=== PATIENT | male | born 1965 | race African-American/Black ===

== ENCOUNTER 2017-10-25 12:06 | Emergency (ER) | payer MEDICAID ==
[~2017-10-25] VITALS: Ht 175.3 cm; Wt 77.0 kg
[2017-10-25] MEDS ORDERED: METF500T4 PO (12:19)
[2017-10-25 12:46] LABS: BASOPHILS % 0.5 % (0.0-2.0); EOSINOPHILS % 0.7 % (0.0-5.0); HEMATOCRIT. 41.2 % (42.0-52.0); HEMOGLOBIN. 13.6 g/dL (14.0-18.0); LYMPHOCYTES % 12.5 % (20.0-50.0); MEAN CORPUSCULAR HEMOGLOBIN 32.1 pg (28.0-32.0); MEAN CORPUSCULAR VOLUME 97.1 fL (80.0-94.0); MEAN PLATELET VOLUME 9.6 fl (7.4-10.4); MONOCYTES % 4.6 % (2.0-8.0); NEUTROPHILS % 81.7 % (40.0-76.0); PLATELET 301 x1000/uL (130-400); RED BLOOD CELL COUNT 4.24 mill/uL (4.7-6.1); RED CELL DISTRIBUTION WIDTH 15.1 % (11.6-14.6)
[2017-10-25 13:03] LABS: ETHANOL BLOOD < 10 mg/dL; TROPONIN I 0.02 ng/mL (0.00-0.04)
[2017-10-25 13:36] LABS: CHLORIDE 112 mEq/L (98-107); INR 0.9; PROTHROMBIN TIME 9.8 sec (9.4-11.6)
[2017-10-25] MEDS ORDERED: IOHEXOL-350 100 ML BOTTLE ONE (14:39)
[2017-10-25 15:17] VITALS: BP 152/81
== END 2017-10-25 15:14 | disposition short-term general hospital (02) ==
LOC: ER 12:12 → CANBEDREQ 20:32
DX: I63.512 Cerebral infarction due to unspecified occlusion or stenosis of left middle cerebral artery (principal); I10 Essential (primary) hypertension; E11.9 Type 2 diabetes mellitus without complications; G82.20 Paraplegia, unspecified
CPT/HCPCS: 36415; 70450; 70496; 71045; 80053; 82962; 84484; 85025; 85610; 93005; 99291; G0482; Q9967; Z7610; 81003; A4315

== ENCOUNTER 2018-06-01 18:12 | Inpatient (IN) | payer MEDICAID ==
[~2018-06-01] VITALS: Ht 167.6 cm; Wt 72.6 kg
[~2018-06-01 18:12] MED LIST: AMLO2.5T45 MT; ASPI-1159 PO; COR6 PO; EPOE40007 SUBCUT; GLIM1TAB2 MT; LACT1CAP56 MT; LANTUSUD SUBCUT; LINA5TAB MT; OMEP20CA10 MT
[2018-06-01] MEDS ORDERED: SODIUM CHLORIDE 0.9% 1,000 ML IV ONE (21:28)
[2018-06-01] MEDS ORDERED: ONDANSETRON HCL 4MG/2ML INJ IV STA (21:28)
[2018-06-01] MEDS ORDERED: MORPHINE SULFATE 4 MG/ML CPJ (NOT FOR IM USE) IV STA (21:28)
[2018-06-01 22:03] LABS: BASOPHILS % 0.4 % (0.0-2.0); EOSINOPHILS % 0.5 % (0.0-5.0); INR 1.1; LYMPHOCYTES % 15.6 % (20.0-50.0); MEAN CORPUSCULAR HEMOGLOBIN 29.6 pg (28.0-32.0); MEAN CORPUSCULAR VOLUME 93.6 fL (80.0-94.0); MEAN PLATELET VOLUME 7.8 fl (7.4-10.4); MONOCYTES % 3.4 % (2.0-8.0); NEUTROPHILS % 80.1 % (40.0-76.0); PLATELET 718 x1000/uL (130-400); PROTHROMBIN TIME 10.9 sec (9.1-11.1); RED BLOOD CELL COUNT 2.03 mill/uL (4.7-6.1); RED CELL DISTRIBUTION WIDTH 16.4 % (11.6-14.6)
[2018-06-01 22:08] LABS: CHLORIDE 106 mEq/L (98-107)
[2018-06-01] MEDS ORDERED: MAGNESIUM SULFATE 2 GM in DEXTROSE 5% WATER 50 ML IV NR (23:45)
[2018-06-02 00:11] LABS: CLARITY URINE CLOUDY (CLEAR); COLOR URINE YELLOW (YELLOW); KETONES URINE TRACE (NEGATIVE); LEUKOCYTE ESTERASE URINE NEGATIVE (NEGATIVE); NITRITE URINE NEGATIVE (NEGATIVE); OCCULT BLOOD URINE 1+ (NEGATIVE); PH URINE 5.5 (4.5-8.0); PROTEIN URINE 4+ (NEGATIVE); SPECIFIC GRAVITY URINE 1.024 (1.005-1.030)
[2018-06-02] MEDS ORDERED: DIPHENHYDRAMINE 50MG/ML VIAL IV PRN (00:15)
[2018-06-02] MEDS ORDERED: HYDROCODONE/ACETAMINOPHEN 5/325MG TABLET PO PRN (00:15)
[2018-06-02] MEDS ORDERED: ONDANSETRON HCL 4MG/2ML INJ IV PRN (00:15)
[2018-06-02] MEDS ORDERED: CLONIDINE 0.1MG TABLET PO PRN (00:15)
[2018-06-02] MEDS ORDERED: NA PHOS,M-B/NA PHOS,DI-BA ENEMA 118ML PR PRN (00:15)
[2018-06-02] MEDS ORDERED: ACETAMINOPHEN 650MG/20.3ML UDC GT PRN (00:15)
[2018-06-02] MEDS ORDERED: ACETAMINOPHEN 325MG TABLET PO PRN (00:15)
[2018-06-02] MEDS ORDERED: MAGNESIUM/ALUMINUM HYDROXIDE/SIMETHICONE 30ML UDC PO PRN (00:15)
[2018-06-02] MEDS ORDERED: ACETAMINOPHEN 650MG SUPP PR PRN (00:15)
[2018-06-02 02:40] VITALS: BP 113/67
[2018-06-02] MEDS: HYDROCODONE/ACETAMINOPHEN 10/325MG TABLET PO PRN ×3 (03:54→21:12)
[2018-06-02 04:00] VITALS: BP 116/68
[2018-06-02] MEDS ORDERED: LISI-186 PO (04:06)
[2018-06-02] MEDS ORDERED: FURO40TA5 PO (04:06)
[2018-06-02] MEDS ORDERED: METF850T2 PO (04:06)
[2018-06-02 08:00] VITALS: BP 100/51
[2018-06-02] MEDS ORDERED: DEXTROSE 50% WATER 50ML SYRINGE IV PRN (11:15)
[2018-06-02] MEDS: LACTOBACILLUS GG CAPSULE PO SCH (11:15)
[2018-06-02] MEDS: FUROSEMIDE 40MG TABLET PO SCH ×2 (11:15→17:00)
[2018-06-02] MEDS: CARVEDILOL 6.25 MG TABLET PO SCH ×3 (11:30→21:12)
[2018-06-02 12:00] VITALS: BP 123/71
[2018-06-02 12:50] LABS: BASOPHILS % 0.4 % (0.0-2.0); EOSINOPHILS % 0.6 % (0.0-5.0); LYMPHOCYTES % 13.3 % (20.0-50.0); MEAN CORPUSCULAR HEMOGLOBIN 30.5 pg (28.0-32.0); MEAN CORPUSCULAR VOLUME 94.1 fL (80.0-94.0); MEAN PLATELET VOLUME 7.8 fl (7.4-10.4); MONOCYTES % 4.4 % (2.0-8.0); NEUTROPHILS % 81.3 % (40.0-76.0); PLATELET 565 x1000/uL (130-400); RED BLOOD CELL COUNT 1.73 mill/uL (4.7-6.1); RED CELL DISTRIBUTION WIDTH 16.7 % (11.6-14.6)
[2018-06-02 12:54] LABS: HEMATOCRIT. 16.3 % (42.0-52.0); HEMOGLOBIN. 5.3 g/dL (14.0-18.0)
[2018-06-02 13:25] LABS: CHLORIDE 107 mEq/L (98-107)
[2018-06-02 13:32] LABS: LDL CHOLESTEROL 80 mg/dL (5-100)
[2018-06-02 13:34] LABS: HDL CHOLESTEROL 32 mg/dL (40-59)
[2018-06-02] MEDS: BLOOD SUGAR DIAGNOSTIC STRIP TEST SCH ×3 (13:35→21:19)
[2018-06-02] MEDS: INSULIN LISPRO 100 UNITS/ML SUBCUT SCH ×3 (14:16→21:18)
[2018-06-02] MEDS: LINAGLIPTIN 5MG TABLET PO SCH (14:18)
[2018-06-02] MEDS: LISINOPRIL 5MG TABLET PO SCH (14:18)
[2018-06-02] MEDS: AMLODIPINE 10MG TABLET PO SCH (14:19)
[2018-06-02] MEDS: ASPIRIN 81MG TABLET PO SCH (14:19)
[2018-06-02] MEDS: LACTATED RINGERS 1,000 ML IV SCH (15:49)
[2018-06-02 16:00] VITALS: BP 99/63
[2018-06-02 20:00] VITALS: BP 101/56
[2018-06-02 20:26] LABS: CLARITY URINE CLOUDY (CLEAR); COLOR URINE YELLOW (YELLOW); KETONES URINE TRACE (NEGATIVE); LEUKOCYTE ESTERASE URINE NEGATIVE (NEGATIVE); NITRITE URINE NEGATIVE (NEGATIVE); OCCULT BLOOD URINE 1+ (NEGATIVE); PROTEIN URINE 3+ (NEGATIVE); SPECIFIC GRAVITY URINE 1.021 (1.005-1.030)
[2018-06-03] VITALS: BP 108/55
[2018-06-03 04:00] VITALS: BP 119/60
[2018-06-03] MEDS: BLOOD SUGAR DIAGNOSTIC STRIP TEST SCH ×4 (07:40→21:09)
[2018-06-03] MEDS: PANTOPRAZOLE 40MG DR TABLET PO SCH (07:40)
[2018-06-03 08:00] VITALS: BP 126/69
[2018-06-03] MEDS: INSULIN LISPRO 100 UNITS/ML SUBCUT SCH ×4 (08:10→21:00)
[2018-06-03] MEDS: CARVEDILOL 6.25 MG TABLET PO SCH ×2 (09:00→21:05)
[2018-06-03] MEDS ORDERED: IOHEXOL-350 100 ML BOTTLE ONE (09:26)
[2018-06-03] MEDS: FUROSEMIDE 40MG TABLET PO SCH (10:34)
[2018-06-03] MEDS: LISINOPRIL 5MG TABLET PO SCH (10:34)
[2018-06-03] MEDS: LINAGLIPTIN 5MG TABLET PO SCH (10:34)
[2018-06-03] MEDS: AMLODIPINE 10MG TABLET PO SCH (10:37)
[2018-06-03] MEDS: LACTOBACILLUS GG CAPSULE PO SCH (10:37)
[2018-06-03] MEDS: ASPIRIN 81MG TABLET PO SCH (10:39)
[2018-06-03 10:52] LABS: MEAN CORPUSCULAR HEMOGLOBIN 29.6 pg (28.0-32.0); MEAN CORPUSCULAR VOLUME 94.3 fL (80.0-94.0); MEAN PLATELET VOLUME 7.7 fl (7.4-10.4); PLATELET 611 x1000/uL (130-400)
[2018-06-03 10:56] LABS: HEMOGLOBIN. 5.3 g/dL (14.0-18.0)
[2018-06-03 11:18] LABS: CHLORIDE 105 mEq/L (98-107)
[2018-06-03 11:32] LABS: LDL CHOLESTEROL 81 mg/dL (5-100)
[2018-06-03 11:34] LABS: HDL CHOLESTEROL 33 mg/dL (40-59)
[2018-06-03 11:45] LABS: PLATELET ESTIMATE INCREASED
[2018-06-03 12:00] VITALS: BP 127/56
[2018-06-03] MEDS: HYDROCODONE/ACETAMINOPHEN 10/325MG TABLET PO PRN (12:00)
[2018-06-03] MEDS: LACTATED RINGERS 1,000 ML IV SCH (14:19)
[2018-06-03] MEDS: CEFTRIAXONE 1 G PREMIX 50 ML IV SCH (14:26)
[2018-06-03 16:00] VITALS: BP 109/72
[2018-06-03 20:00] VITALS: BP 135/72
[2018-06-04] VITALS (8 sets, daily range): BP systolic 120–148; BP diastolic 63–87
[2018-06-04] MEDS: BLOOD SUGAR DIAGNOSTIC STRIP TEST SCH ×4 (07:40→21:40)
[2018-06-04] MEDS: PANTOPRAZOLE 40MG DR TABLET PO SCH (07:40)
[2018-06-04] MEDS: INSULIN LISPRO 100 UNITS/ML SUBCUT SCH ×4 (08:10→21:00)
[2018-06-04] MEDS: CARVEDILOL 6.25 MG TABLET PO SCH ×2 (09:00→21:00)
[2018-06-04] MEDS: LINAGLIPTIN 5MG TABLET PO SCH (09:00)
[2018-06-04] MEDS: LACTOBACILLUS GG CAPSULE PO SCH (09:00)
[2018-06-04] MEDS: AMLODIPINE 10MG TABLET PO SCH (09:00)
[2018-06-04] MEDS ORDERED: FLUCONAZOLE 100MG TABLET PO ONE (12:00)
[2018-06-04] MEDS: CEFTRIAXONE 1 G PREMIX 50 ML IV SCH (13:13)
[2018-06-04] MEDS: FLUCONAZOLE 100MG TABLET PO SCH (13:20)
[2018-06-04 15:28] LABS: BASOPHILS % 0.5 % (0.0-2.0); EOSINOPHILS % 0.5 % (0.0-5.0); LYMPHOCYTES % 7.4 % (20.0-50.0); MEAN CORPUSCULAR HEMOGLOBIN 30.3 pg (28.0-32.0); MEAN CORPUSCULAR VOLUME 93.3 fL (80.0-94.0); MEAN PLATELET VOLUME 7.7 fl (7.4-10.4); MONOCYTES % 2.6 % (2.0-8.0); PLATELET 575 x1000/uL (130-400); RED CELL DISTRIBUTION WIDTH 16.9 % (11.6-14.6)
[2018-06-04 15:41] LABS: CHLORIDE 105 mEq/L (98-107)
[2018-06-04] MEDS: LACTATED RINGERS 1,000 ML IV SCH (15:45)
[2018-06-04 15:50] LABS: HEMATOCRIT. 16.8 % (42.0-52.0); HEMOGLOBIN. 5.5 g/dL (14.0-18.0)
[2018-06-04] MEDS: HYDROCODONE/ACETAMINOPHEN 10/325MG TABLET PO PRN (19:04)
[2018-06-04] MEDS ORDERED: FUROSEMIDE 40MG/4ML VIAL IVP NR (19:30)
[2018-06-04] MEDS: EPOETIN ALFA 4000UNITS/ML VIAL SUBCUT SCH (21:34)
[2018-06-05] VITALS (20 sets, daily range): BP systolic 104–169; BP diastolic 65–91
[2018-06-05] MEDS: ALBUTEROL (0.083%) 2.5MG/3ML NEB HHN SCH ×4 (02:05→21:25)
[2018-06-05 03:09] LABS: BASOPHILS % 0.3 % (0.0-2.0); EOSINOPHILS % 0.7 % (0.0-5.0); MEAN PLATELET VOLUME 7.5 fl (7.4-10.4); MONOCYTES % 3.9 % (2.0-8.0); NEUTROPHILS % 87.1 % (40.0-76.0); PLATELET 532 x1000/uL (130-400); RED BLOOD CELL COUNT 2.24 mill/uL (4.7-6.1); RED CELL DISTRIBUTION WIDTH 16.9 % (11.6-14.6)
[2018-06-05 03:16] LABS: HEMATOCRIT. 20.6 % (42.0-52.0); HEMOGLOBIN. 6.7 g/dL (14.0-18.0)
[2018-06-05 03:18] LABS: INR 1.1; PROTHROMBIN TIME 11.4 sec (9.1-11.1)
[2018-06-05] MEDS: BLOOD SUGAR DIAGNOSTIC STRIP TEST SCH ×4 (05:41→21:00)
[2018-06-05] MEDS: PANTOPRAZOLE 40MG DR TABLET PO SCH (07:40)
[2018-06-05] MEDS: INSULIN LISPRO 100 UNITS/ML SUBCUT SCH ×4 (07:46→22:16)
[2018-06-05] MEDS: AMLODIPINE 10MG TABLET PO SCH (09:00)
[2018-06-05] MEDS: LINAGLIPTIN 5MG TABLET PO SCH (09:00)
[2018-06-05] MEDS: CARVEDILOL 6.25 MG TABLET PO SCH ×2 (09:00→20:47)
[2018-06-05] MEDS: FLUCONAZOLE 100MG TABLET PO SCH (09:00)
[2018-06-05] MEDS: LACTOBACILLUS GG CAPSULE PO SCH (09:00)
[2018-06-05 09:48] LABS: HEMATOCRIT. 22.5 % (42.0-52.0); HEMOGLOBIN. 7.2 g/dL (14.0-18.0); MEAN CORPUSCULAR HEMOGLOBIN 28.5 pg (28.0-32.0); MEAN CORPUSCULAR VOLUME 88.7 fL (80.0-94.0); MEAN PLATELET VOLUME 7.5 fl (7.4-10.4); PLATELET 530 x1000/uL (130-400); RED BLOOD CELL COUNT 2.54 mill/uL (4.7-6.1); RED CELL DISTRIBUTION WIDTH 19.6 % (11.6-14.6)
[2018-06-05 09:59] LABS: INR 1.1; PROTHROMBIN TIME 11.3 sec (9.1-11.1)
[2018-06-05] MEDS: FUROSEMIDE 40MG/4ML VIAL IVP SCH (10:13)
[2018-06-05] MEDS ORDERED: HEPARIN SODIUM 1,000 UNIT/1ML VIAL IV ONE (13:50)
[2018-06-05] MEDS: CEFTRIAXONE 1 G PREMIX 50 ML IV SCH (15:12)
[2018-06-05] MEDS ORDERED: IODIXANOL 320MG/ML 100 ML BOTTLE IV ONE (15:52)
[2018-06-05] MEDS ORDERED: LIDOCAINE HCL 1% 10 MG/ML 10ML VIAL ONE ×2 (15:52→16:33)
[2018-06-05 16:10] LABS: PLATELET ESTIMATE INCREASED
[2018-06-05] MEDS ORDERED: FENTANYL CITRATE/PF 50MCG/ML 2ML VIAL ONE ×2 (16:25→16:55)
[2018-06-05] MEDS ORDERED: MIDAZOLAM HCL 2 MG/2 ML VIAL ONE ×2 (16:25→16:55)
[2018-06-05] MEDS ORDERED: IOHEXOL-300 100 ML BOTTLE ONE (17:03)
[2018-06-05] MEDS: HYDROCODONE/ACETAMINOPHEN 10/325MG TABLET PO PRN (20:30)
[2018-06-05] MEDS ORDERED: AMLODIPINE 10MG TABLET PO SCH (20:45)
[2018-06-05] MEDS ORDERED: AMLODIPINE 10MG TABLET PO NR ×2 (20:45→21:00)
[2018-06-06] VITALS: BP 132/58
[2018-06-06] MEDS: ALBUTEROL (0.083%) 2.5MG/3ML NEB HHN SCH ×4 (01:39→20:24)
[2018-06-06] MEDS: ACETYLCYSTEINE 200MG/ML 20% VIAL 4ML PO SCH (02:03)
[2018-06-06] MEDS: HYDROCODONE/ACETAMINOPHEN 10/325MG TABLET PO PRN ×3 (02:55→21:15)
[2018-06-06 04:00] VITALS: BP 127/80
[2018-06-06] MEDS: BLOOD SUGAR DIAGNOSTIC STRIP TEST SCH ×4 (05:13→21:04)
[2018-06-06] MEDS: PANTOPRAZOLE 40MG DR TABLET PO SCH (07:40)
[2018-06-06] MEDS: INSULIN LISPRO 100 UNITS/ML SUBCUT SCH ×4 (07:53→21:00)
[2018-06-06 08:00] VITALS: BP 109/80
[2018-06-06] MEDS: CARVEDILOL 6.25 MG TABLET PO SCH ×3 (08:05→21:04)
[2018-06-06] MEDS: FLUCONAZOLE 100MG TABLET PO SCH (08:05)
[2018-06-06] MEDS: LACTOBACILLUS GG CAPSULE PO SCH (08:05)
[2018-06-06] MEDS: AMLODIPINE 10MG TABLET PO SCH (08:06)
[2018-06-06] MEDS: LINAGLIPTIN 5MG TABLET PO SCH (08:06)
[2018-06-06] MEDS: FUROSEMIDE 40MG/4ML VIAL IVP SCH (08:30)
[2018-06-06 12:00] VITALS: BP 150/86
[2018-06-06] MEDS ORDERED: SULF1TAB48 MT (12:30)
[2018-06-06] MEDS: ASCORBIC ACID 500 MG TABLET PO SCH (13:43)
[2018-06-06] MEDS: MULTIVITAMINS,THER W-MINERALS TABLET PO SCH (13:43)
[2018-06-06] MEDS: CEFTRIAXONE 1 G PREMIX 50 ML IV SCH (13:43)
[2018-06-06] MEDS: ZINC SULFATE 220 MG ( 50 ) CAPSULE PO SCH (13:43)
[2018-06-06 15:18] LABS: HEMATOCRIT. 26.3 % (42.0-52.0); HEMOGLOBIN. 8.4 g/dL (14.0-18.0); MEAN CORPUSCULAR HEMOGLOBIN 28.6 pg (28.0-32.0); MEAN PLATELET VOLUME 7.6 fl (7.4-10.4); PLATELET 484 x1000/uL (130-400); RED BLOOD CELL COUNT 2.95 mill/uL (4.7-6.1)
[2018-06-06 16:00] VITALS: BP 158/90
[2018-06-06 16:06] LABS: PLATELET ESTIMATE INCREASED
[2018-06-06 16:19] LABS: CHLORIDE 104 mEq/L (98-107)
[2018-06-06 20:00] VITALS: BP 143/88
[2018-06-06] MEDS: EPOETIN ALFA 4000UNITS/ML VIAL SUBCUT SCH (21:04)
[2018-06-06] MEDS: SODIUM CHLORIDE 0.9% 1,000 ML IV SCH (23:45)
[2018-06-07] VITALS: BP 138/84
[2018-06-07] MEDS: ALBUTEROL (0.083%) 2.5MG/3ML NEB HHN SCH ×4 (02:03→20:43)
[2018-06-07 05:52] VITALS: BP 126/70
[2018-06-07] MEDS: BLOOD SUGAR DIAGNOSTIC STRIP TEST SCH ×4 (06:46→20:18)
[2018-06-07 08:00] VITALS: BP 146/86
[2018-06-07] MEDS: INSULIN LISPRO 100 UNITS/ML SUBCUT SCH ×4 (08:10→20:18)
[2018-06-07] MEDS: CARVEDILOL 6.25 MG TABLET PO SCH ×3 (09:00→20:01)
[2018-06-07] MEDS: ACETYLCYSTEINE 200MG/ML 20% VIAL 4ML PO SCH ×2 (09:00→14:48)
[2018-06-07] MEDS: LACTOBACILLUS GG CAPSULE PO SCH ×2 (09:00→11:05)
[2018-06-07] MEDS: ASCORBIC ACID 500 MG TABLET PO SCH (11:05)
[2018-06-07] MEDS: MULTIVITAMINS,THER W-MINERALS TABLET PO SCH (11:05)
[2018-06-07] MEDS: LINAGLIPTIN 5MG TABLET PO SCH (11:06)
[2018-06-07] MEDS: FLUCONAZOLE 100MG TABLET PO SCH (11:06)
[2018-06-07] MEDS: AMLODIPINE 10MG TABLET PO SCH (11:06)
[2018-06-07] MEDS: ZINC SULFATE 220 MG ( 50 ) CAPSULE PO SCH (11:06)
[2018-06-07] MEDS: PANTOPRAZOLE 40MG DR TABLET PO SCH (11:06)
[2018-06-07 12:00] VITALS: BP 154/91
[2018-06-07] MEDS: SODIUM CHLORIDE 0.9% 1,000 ML IV SCH ×2 (12:12→20:01)
[2018-06-07] MEDS: CEFTRIAXONE 1 G PREMIX 50 ML IV SCH (12:12)
[2018-06-07 16:00] VITALS: BP 128/81
[2018-06-07 19:39] VITALS: BP 132/74
[2018-06-07] MEDS: HYDROCODONE/ACETAMINOPHEN 10/325MG TABLET PO PRN (20:00)
[2018-06-07] MEDS ORDERED: HYDROCODONE/ACETAMINOPHEN 5/325MG TABLET PO PRN (20:00)
[2018-06-07 22:08] LABS: *AMPHETAMINES SCREEN URINE NEGATIVE (NEGATIVE); *BARBITURATES SCREEN URINE NEGATIVE (NEGATIVE); *BENZODIAZEPINES SCREEN URINE PRESUMTIVE POSITIVE (NEGATIVE); *COCAINE SCREEN URINE NEGATIVE (NEGATIVE); METHADONE URINE SCREEN NEGATIVE (NEGATIVE)
[2018-06-07 22:09] LABS: CANNABINOID URINE SCREEN NEGATIVE (NEGATIVE); OPIATES URINE SCREEN PRESUMTIVE POSITIVE (NEGATIVE); PHENCYCLIDINE URINE SCREEN NEGATIVE (NEGATIVE)
[2018-06-08] VITALS: BP 127/64
[2018-06-08] MEDS: ALBUTEROL (0.083%) 2.5MG/3ML NEB HHN SCH ×2 (02:00→08:30)
[2018-06-08] MEDS: SODIUM CHLORIDE 0.9% 1,000 ML IV SCH (04:11)
[2018-06-08 06:45] LABS: BASOPHILS % 0.3 % (0.0-2.0); EOSINOPHILS % 0.9 % (0.0-5.0); HEMATOCRIT. 25.7 % (42.0-52.0); HEMOGLOBIN. 8.3 g/dL (14.0-18.0); LYMPHOCYTES % 10.4 % (20.0-50.0); MEAN CORPUSCULAR HEMOGLOBIN 29.1 pg (28.0-32.0); MEAN CORPUSCULAR VOLUME 89.6 fL (80.0-94.0); MEAN PLATELET VOLUME 7.8 fl (7.4-10.4); MONOCYTES % 6.9 % (2.0-8.0); NEUTROPHILS % 81.5 % (40.0-76.0); PLATELET 457 x1000/uL (130-400); RED BLOOD CELL COUNT 2.86 mill/uL (4.7-6.1); RED CELL DISTRIBUTION WIDTH 18.7 % (11.6-14.6)
[2018-06-08 06:53] LABS: CHLORIDE 108 mEq/L (98-107)
[2018-06-08 06:59] LABS: PHOSPHORUS 4.7 mg/dL (2.5-4.9)
[2018-06-08] MEDS: BLOOD SUGAR DIAGNOSTIC STRIP TEST SCH ×4 (07:40→20:40)
[2018-06-08] MEDS: INSULIN LISPRO 100 UNITS/ML SUBCUT SCH ×4 (07:43→20:40)
[2018-06-08 08:00] VITALS: BP 138/78
[2018-06-08] MEDS: ACETYLCYSTEINE 200MG/ML 20% VIAL 4ML PO SCH ×2 (09:00→20:41)
[2018-06-08] MEDS: CARVEDILOL 6.25 MG TABLET PO SCH ×2 (09:00→20:38)
[2018-06-08] MEDS: LINAGLIPTIN 5MG TABLET PO SCH (09:20)
[2018-06-08] MEDS: FLUCONAZOLE 100MG TABLET PO SCH (09:20)
[2018-06-08] MEDS: ASCORBIC ACID 500 MG TABLET PO SCH (09:20)
[2018-06-08] MEDS: LACTOBACILLUS GG CAPSULE PO SCH (09:20)
[2018-06-08] MEDS: PANTOPRAZOLE 40MG DR TABLET PO SCH (09:20)
[2018-06-08] MEDS: MULTIVITAMINS,THER W-MINERALS TABLET PO SCH (09:20)
[2018-06-08] MEDS: AMLODIPINE 10MG TABLET PO SCH (09:21)
[2018-06-08] MEDS: FERROUS SULFATE 325MG TABLET PO SCH (09:21)
[2018-06-08] MEDS: ZINC SULFATE 220 MG ( 50 ) CAPSULE PO SCH (09:21)
[2018-06-08] MEDS: IRON SUCROSE COMPLEX 100 MG/5 ML ML IV SCH (10:00)
[2018-06-08 12:00] VITALS: BP 140/79
[2018-06-08] MEDS: CEFTRIAXONE 1 G PREMIX 50 ML IV SCH (13:23)
[2018-06-08 20:00] VITALS: BP 135/83
[2018-06-08] MEDS: HYDROCODONE/ACETAMINOPHEN 10/325MG TABLET PO PRN (20:38)
[2018-06-09] VITALS: BP 118/74
[2018-06-09 04:00] VITALS: BP 143/79
[2018-06-09 07:37] LABS: BASOPHILS % 0.5 % (0.0-2.0); EOSINOPHILS % 1.2 % (0.0-5.0); HEMATOCRIT. 26.4 % (42.0-52.0); HEMOGLOBIN. 8.5 g/dL (14.0-18.0); LYMPHOCYTES % 14.7 % (20.0-50.0); MEAN CORPUSCULAR HEMOGLOBIN 28.9 pg (28.0-32.0); MEAN CORPUSCULAR VOLUME 89.9 fL (80.0-94.0); MEAN PLATELET VOLUME 8.3 fl (7.4-10.4); MONOCYTES % 8.3 % (2.0-8.0); NEUTROPHILS % 75.3 % (40.0-76.0); PLATELET 483 x1000/uL (130-400); RED BLOOD CELL COUNT 2.94 mill/uL (4.7-6.1); RED CELL DISTRIBUTION WIDTH 18.5 % (11.6-14.6)
[2018-06-09] MEDS: PANTOPRAZOLE 40MG DR TABLET PO SCH (07:40)
[2018-06-09] MEDS: BLOOD SUGAR DIAGNOSTIC STRIP TEST SCH ×2 (07:40→12:40)
[2018-06-09 07:51] LABS: PHOSPHORUS 3.6 mg/dL (2.5-4.9)
[2018-06-09 08:00] VITALS: BP 127/79
[2018-06-09] MEDS: INSULIN LISPRO 100 UNITS/ML SUBCUT SCH ×2 (08:10→14:39)
[2018-06-09] MEDS ORDERED: ASPIRIN 81MG TABLET PO SCH (09:00)
[2018-06-09] MEDS: CARVEDILOL 6.25 MG TABLET PO SCH (09:00)
[2018-06-09] MEDS: LACTOBACILLUS GG CAPSULE PO SCH (09:37)
[2018-06-09] MEDS: MULTIVITAMINS,THER W-MINERALS TABLET PO SCH (09:37)
[2018-06-09] MEDS: ASCORBIC ACID 500 MG TABLET PO SCH (09:37)
[2018-06-09] MEDS: FERROUS SULFATE 325MG TABLET PO SCH (09:37)
[2018-06-09] MEDS: FLUCONAZOLE 100MG TABLET PO SCH (09:37)
[2018-06-09] MEDS: ZINC SULFATE 220 MG ( 50 ) CAPSULE PO SCH (09:37)
[2018-06-09] MEDS: LINAGLIPTIN 5MG TABLET PO SCH (09:37)
[2018-06-09] MEDS: IRON SUCROSE COMPLEX 100 MG/5 ML ML IV SCH (09:38)
[2018-06-09] MEDS: AMLODIPINE 10MG TABLET PO SCH (09:38)
[2018-06-09] MEDS ORDERED: MAGNESIUM 2 G PREMIX 50 ML IV NR (11:30)
[2018-06-09 12:00] VITALS: BP 136/80
[2018-06-09] MEDS: CEFTRIAXONE 1 G PREMIX 50 ML IV SCH (14:34)
[2018-06-09 15:34] VITALS: BP 113/74
[2018-06-09 16:00] VITALS: BP 113/74
[2018-06-10] MEDS ORDERED: ASPIRIN 81MG TABLET PO SCH (09:00)
== END 2018-06-09 17:47 | disposition home health service (06) | DRG 181 ==
LOC: ER 18:12 → 7WST 06-02 00:01 → EDBEDREQSVC 06-02 00:06 → EDBEDREQDT 06-02 00:11 → EDBEDREQTM 06-02 00:11 → EDBEDREQ 06-02 00:11 → ENRESERV 06-02 01:13
PROVIDERS: ADMIT Family Medicine; ATTEND Family Medicine
PROC: B447ZZ3 Ultrasonography of Left Renal Artery, Intravascular (ICD-10-PCS; principal; 2018-06-06)
PROC: 047J34Z Dilation of Left External Iliac Artery with Drug-eluting Intraluminal Device, Percutaneous Approach (ICD-10-PCS; 2018-06-06)
DX: E11.52 Type 2 diabetes mellitus with diabetic peripheral angiopathy with gangrene (principal); N17.0 Acute kidney failure with tubular necrosis; E43 Unspecified severe protein-calorie malnutrition; L89.324 Pressure ulcer of left buttock, stage 4; J18.9 Pneumonia, unspecified organism; E11.22 Type 2 diabetes mellitus with diabetic chronic kidney disease; I74.5 Embolism and thrombosis of iliac artery; G82.20 Paraplegia, unspecified; B37.49 Other urogenital candidiasis; I13.0 Hypertensive heart and chronic kidney disease with heart failure and stage 1 through stage 4 chronic kidney disease, or unspecified chronic kidney disease; I50.32 Chronic diastolic (congestive) heart failure; D63.8 Anemia in other chronic diseases classified elsewhere; E11.621 Type 2 diabetes mellitus with foot ulcer; Z87.891 Personal history of nicotine dependence; B96.1 Klebsiella pneumoniae [K. pneumoniae] as the cause of diseases classified elsewhere; E78.00 Pure hypercholesterolemia, unspecified; E83.42 Hypomagnesemia; I45.10 Unspecified right bundle-branch block; I69.369 Other paralytic syndrome following cerebral infarction affecting unspecified side; J44.0 Chronic obstructive pulmonary disease with (acute) lower respiratory infection; L97.329 Non-pressure chronic ulcer of left ankle with unspecified severity; L97.409 Non-pressure chronic ulcer of unspecified heel and midfoot with unspecified severity; M19.90 Unspecified osteoarthritis, unspecified site; N14.1 Nephropathy induced by other drugs, medicaments and biological substances; N18.2 Chronic kidney disease, stage 2 (mild); T50.8X5A Adverse effect of diagnostic agents, initial encounter; Z74.01 Bed confinement status; Y92.89 Other specified places as the place of occurrence of the external cause; Z68.25 Body mass index [BMI] 25.0-25.9, adult; Z85.46 Personal history of malignant neoplasm of prostate; Z86.711 Personal history of pulmonary embolism; Z87.440 Personal history of urinary (tract) infections; Z90.79 Acquired absence of other genital organ(s); Z93.3 Colostomy status; Z79.4 Long term (current) use of insulin; Z79.82 Long term (current) use of aspirin; Z79.899 Other long term (current) drug therapy; Z79.84 Long term (current) use of oral hypoglycemic drugs; Z83.3 Family history of diabetes mellitus; Z82.49 Family history of ischemic heart disease and other diseases of the circulatory system
CPT/HCPCS: 36415; 37221; 37223; 71045; 72191; 73620; 73706; 75710; 76700; 76770; 80048; 80053; 80061; 80305; 81003; 82270; 82962; 83036; 83540; 83550; 83605; 83735; 84100; 84145; 84153; 84156; 85025; 85347; 85384; 85610; 86850; 86900; 86920; 87015; 87040; 87045; 87077; 87086; 87106; 87186; 87427; 87449; 89055; 93005; 93306; 93922; 94640; 96361; 96365; 96375; 99285; C1725; C1760; C1769; C1874; C1887; C1893; J0696; J0885; J1644; J1815; J1940; J2250; J2270; J2405; J3010; J3475; J3490; J7030; J7040; J7050; J7060; J7120; J7608; J7611; P9016; Q9967; G0103